=== PATIENT | male | born 1990 | race Caucasian/White ===

== ENCOUNTER 2019-08-03 18:32 | Emergency (ER) | payer SELFPAY ==
[~2019-08-03] VITALS: Ht 180.3 cm; Wt 82.0 kg
[2019-08-03] MEDS ORDERED: LORAZEPAM 2MG/ML CPJ IV STA (21:44)
[2019-08-03] MEDS ORDERED: SODIUM CHLORIDE 0.9% 1,000 ML IV ONE (21:44)
[2019-08-03] MEDS ORDERED: ASPIRIN 81MG TABLET PO ONE (21:45)
[2019-08-03 22:44] LABS: BASOPHILS % 0.8 % (0.0-2.0); EOSINOPHILS % 1.7 % (0.0-5.0); HEMATOCRIT. 43.6 % (42.0-52.0); HEMOGLOBIN. 14.7 g/dL (14.0-18.0); LYMPHOCYTES % 22.2 % (20.0-50.0); MEAN CORPUSCULAR HEMOGLOBIN 29.7 pg (28.0-32.0); MEAN CORPUSCULAR VOLUME 88.1 fL (80.0-94.0); MEAN PLATELET VOLUME 6.9 fl (7.4-10.4); MONOCYTES % 9.2 % (2.0-8.0); NEUTROPHILS % 66.1 % (40.0-76.0); PLATELET 273 x1000/uL (130-400); RED BLOOD CELL COUNT 4.95 mill/uL (4.7-6.1); RED CELL DISTRIBUTION WIDTH 13.8 % (11.6-14.6)
[2019-08-03 22:48] LABS: CHLORIDE 106 mEq/L (98-107)
[2019-08-03 22:53] LABS: ETHANOL BLOOD 198 mg/dL
[2019-08-04 04:33] VITALS: BP 128/75
== END 2019-08-04 04:37 | disposition home or self-care (01) ==
LOC: ER 18:32
DX: G93.40 Encephalopathy, unspecified (principal); F15.10 Other stimulant abuse, uncomplicated; F17.200 Nicotine dependence, unspecified, uncomplicated; R07.9 Chest pain, unspecified
CPT/HCPCS: 36415; 71045; 80053; 80307; 80320; 80329; 84484; 85025; 93005; 96361; 96374; 99284; J2060; J7030; Z7610; G0480